=== PATIENT | male | born 1940 | race Caucasian/White ===

== ENCOUNTER 2024-04-22 06:14 | Emergency (ER) | payer OTHER ==
[~2024-04-22] VITALS: Ht 182.9 cm; Wt 69.0 kg
[2024-04-22 07:35] LABS: HEMATOCRIT. 43.6 % (42.0-52.0); HEMOGLOBIN. 14.8 g/dL (14.0-18.0); MEAN CORPUSCULAR HEMOGLOBIN 32.1 pg (28.0-32.0); MEAN CORPUSCULAR VOLUME 94.4 fL (80.0-94.0); MEAN PLATELET VOLUME 8.8 fl (7.4-10.4); PLATELET 290 x1000/uL (130-400); RED BLOOD CELL COUNT 4.62 mill/uL (4.7-6.1); RED CELL DISTRIBUTION WIDTH 15.4 % (11.6-14.6); WHITE BLOOD COUNT 14.9 x1000/uL (4.5-11.0)
[2024-04-22 07:38] LABS: DIFFERENTIAL COMMENT 1
[2024-04-22 07:41] LABS: CHLORIDE 104 mEq/L (98-107); POTASSIUM 4.5 mEq/L (3.5-5.1); SODIUM 141 mEq/L (136-145)
[2024-04-22 07:42] LABS: CALCIUM 9.3 mg/dL (8.7-10.4); CARBON DIOXIDE 32 mEq/L (21-32)
[2024-04-22] MEDS: MORPHINE SULFATE 4 MG/ML INJ (FOR IV/IM USE) IV ONE (07:44)
[2024-04-22] MEDS: ONDANSETRON HCL 4MG/2ML INJ IV ONE (07:44)
[2024-04-22 07:47] LABS: CREATININE 0.6 mg/dL (0.6-1.3); GLUCOSE 104 mg/dL (70-105); UREA NITROGEN BLOOD 19 mg/dL (9-23)
[2024-04-22 07:48] LABS: LACTIC ACID 2.6 mmol/L (0.4-2.0); TROPONIN I HIGH SENSITIVITY 11 ng/L (3.0-53)
[2024-04-22 07:55] LABS: PROTHROMBIN TIME 11.4 sec (9.6-11.0)
[2024-04-22 08:00] LABS: PLATELET ESTIMATE NORMAL
[2024-04-22] MEDS: PIPERACILLIN/TAZO 3.375G/50ML 50 ML IV STA (08:38)
[2024-04-22] MEDS: METHYLPREDNISOLONE SOD SUCC 125MG/2ML (ACT-O-VIAL) IV ONE (08:38)
[2024-04-22 08:43] VITALS: PULSE 71; RESP 18; O2SAT 89
[2024-04-22] MEDS: IPRATROPIUM/ALBUTEROL 0.5-3(2.5)MG/3ML NEB HHN ONE (08:43)
[2024-04-22] MEDS ORDERED: FUROSEMIDE 20MG/2ML VIAL IVP ONE (09:00)
[2024-04-22] MEDS: FUROSEMIDE 40MG/4ML VIAL IVP NR (09:15)
[2024-04-22] MEDS: SODIUM CHLORIDE 0.9% 500 ML IV ONE (09:42)
[2024-04-22 10:25] VITALS: BP 98/82; PULSE 78; RESP 14; TEMP 36.72516; O2SAT 99
== END 2024-04-22 11:10 | disposition short-term general hospital (02) ==
LOC: ER 06:14
DX: R09.02 Hypoxemia (principal); M79.672 Pain in left foot; M79.671 Pain in right foot; I50.9 Heart failure, unspecified
CPT/HCPCS: 99285; 96365; 96375; 71045; 96361; 80048; 83880; 83605; 85025; 85610; 87040; 84484; 36415; 84145; 73630; 94640; 93005; J1940; J2919; J2405; J2543; J2270; J7040

== ENCOUNTER 2024-05-03 05:23 | Emergency (ER) | payer OTHER ==
[~2024-05-03] VITALS: Ht 180.3 cm; Wt 72.0 kg
[2024-05-03] MEDS: KETOROLAC 30MG/ML VIAL IV ONE (06:20)
[2024-05-03 06:56] LABS: HEMATOCRIT. 38.1 % (42.0-52.0); HEMOGLOBIN. 12.7 g/dL (14.0-18.0); MEAN CORPUSCULAR HEMOGLOBIN 31.7 pg (28.0-32.0); MEAN CORPUSCULAR HGB CONC 33.4 g/dL (31.0-37.0); MEAN CORPUSCULAR VOLUME 94.9 fL (80.0-94.0); MEAN PLATELET VOLUME 8.6 fl (7.4-10.4); PLATELET 310 x1000/uL (130-400); RED BLOOD CELL COUNT 4.01 mill/uL (4.7-6.1); RED CELL DISTRIBUTION WIDTH 15.3 % (11.6-14.6); WHITE BLOOD COUNT 21.4 x1000/uL (4.5-11.0)
[2024-05-03 06:59] LABS: CARBON DIOXIDE 33 mEq/L (21-32); CHLORIDE 103 mEq/L (98-107); POTASSIUM 4.9 mEq/L (3.5-5.1); SODIUM 139 mEq/L (136-145)
[2024-05-03 07:00] LABS: CALCIUM 9.2 mg/dL (8.7-10.4)
[2024-05-03 07:05] LABS: CREATININE 0.6 mg/dL (0.6-1.3); GLUCOSE 82 mg/dL (70-105); TROPONIN I HIGH SENSITIVITY 15 ng/L (3.0-53); UREA NITROGEN BLOOD 20 mg/dL (9-23)
[2024-05-03 07:07] LABS: ALANINE AMINOTRANSFERASE 10 IU/L (10-49); ALBUMIN 3.4 g/dL (3.2-4.8); ASPARTATE AMINOTRANSFERASE 32 IU/L (<34); BILIRUBIN DIRECT 0.6 mg/dL (<=3.0); BILIRUBIN TOTAL 1.8 mg/dL (0.1-1.0); PROTEIN TOTAL 6.8 g/dL (6.0-8.3)
[2024-05-03 07:08] LABS: LACTIC ACID 2.7 mmol/L (0.4-2.0)
[2024-05-03 07:29] LABS: DIFFERENTIAL COMMENT 1
[2024-05-03 07:41] LABS: PROTHROMBIN TIME 11.4 sec (9.6-11.0)
[2024-05-03 08:21] VITALS: PULSE 88; RESP 18; O2SAT 98
[2024-05-03] MEDS: ALBUTEROL (0.083%) 2.5MG/3ML NEB HHN STA (08:21)
[2024-05-03] MEDS: SODIUM CHLORIDE 0.9% (SEPSIS BOLUS) IV ONE (09:06)
[2024-05-03] MEDS: VANCOMYCIN 1G PREMIX 200 ML IV ONE (09:06)
[2024-05-03] MEDS: PIPERACILLIN/TAZO 3.375G/50ML 50 ML IV ONE (09:06)
[2024-05-03 10:24] LABS: PLATELET ESTIMATE NORMAL
[2024-05-03] MEDS ORDERED: ACETAMINOPHEN 325MG TABLET PO PRN (11:00)
[2024-05-03] MEDS ORDERED: ONDANSETRON HCL 4MG/2ML INJ IV PRN (11:00)
[2024-05-03] MEDS ORDERED: TRAMADOL 50MG TABLET PO PRN (11:00)
[2024-05-03 13:27] VITALS: PULSE 83; RESP 20; O2SAT 95
[2024-05-03] MEDS: IPRATROPIUM/ALBUTEROL 0.5-3(2.5)MG/3ML NEB HHN SCH (13:27)
[2024-05-03 14:36] VITALS: BP 116/70; PULSE 82; RESP 18; TEMP 36.72516; O2SAT 98
[2024-05-03] MEDS ORDERED: PIPERACILLIN/TAZO 3.375G/50ML 50 ML IV SCH ×2 (16:00→22:00)
== END 2024-05-03 14:40 | disposition short-term general hospital (02) ==
LOC: ER 05:23 → EDBEDREQ 08:46 → CANBEDREQ 14:28 → ER 14:40
DX: A41.9 Sepsis, unspecified organism (principal); M54.2 Cervicalgia; R65.20 Severe sepsis without septic shock; J18.9 Pneumonia, unspecified organism; I11.0 Hypertensive heart disease with heart failure; I50.9 Heart failure, unspecified; Z20.822 Contact with and (suspected) exposure to COVID-19
CPT/HCPCS: 99291; 94070; 96365; 71045; 96375; 87426; 80076; 80048; 83605; 85025; 85610; 87040; 87186; 84484; 87804 ×2; 87077; 36415; 84145; 93005; 96368; 94640; J1885; J2543; J3370; J7030